=== PATIENT | female | born 1980 | race African-American/Black ===

== ENCOUNTER 2017-02-18 14:46 | Outpatient (CLI) | payer OTHER ==
--- NOTE | 2017-02-18 16:14 | Ultrasound Report ---
THYROID ULTRASOUND:02/18/17 14:46:00 CLINICAL: Goiter. FINDINGS: High-resolution ultrasound demonstrated an enlarged thyroid with a heterogeneous diffuse nodular echo pattern. The right lobe measures 4.6 x 2.4 x 2.5 cm. The left lobe measures 4.6 x 1.8 x 1.7 cm. The isthmus measures 7 mm AP thickness. A solid round hypoechoic nodule in the lateral midportion of the right lobe measures 5 mm. A solid oval hypoechoic nodule of the lower pole of the left lobe measures 1.2 x 0.9 x 0.8 cm. No other measurable nodules. IMPRESSION: Enlarged multinodular thyroid with only two measurable nodules.
== END 2017-02-18 14:47 | disposition home or self-care (01) ==
LOC: SPVWC 14:46
PROVIDERS: ATTEND Internal Medicine Endocrinology, Diabetes & Metabolism
DX: E04.2 Nontoxic multinodular goiter (principal)
CPT/HCPCS: 76536